=== PATIENT | male | born 1980 | race Caucasian/White ===

== ENCOUNTER 2020-03-20 10:06 | Emergency (ER) | payer OTHER ==
[~2020-03-20] VITALS: Ht 180.3 cm; Wt 100.0 kg
[2020-03-20 10:18] VITALS: BP 138/96; TEMP 98.5
[2020-03-20] MEDS ORDERED: PRILOSEC 20MG20 MG PO (10:18)
[2020-03-20 11:49] VITALS: PULSE 64
== END 2020-03-20 11:44 | disposition home or self-care (01) ==
LOC: COL.ER 10:06
DX: S93.401A Sprain of unspecified ligament of right ankle, initial encounter (principal); X50.1XXA Overexertion from prolonged static or awkward postures, initial encounter

== ENCOUNTER 2020-03-22 21:14 | Emergency (ER) | payer OTHER ==
[~2020-03-22] VITALS: Ht 180.3 cm; Wt 100.9 kg
[~2020-03-22 21:14] MED LIST: PRILOSEC 20MG20 MG PO
[2020-03-22 21:18] VITALS: TEMP 98
[2020-03-22 22:05] VITALS: BP 128/70; PULSE 80
== END 2020-03-22 22:05 | disposition home or self-care (01) ==
LOC: COL.ER 21:14
DX: S93.401A Sprain of unspecified ligament of right ankle, initial encounter (principal); I10 Essential (primary) hypertension; F17.210 Nicotine dependence, cigarettes, uncomplicated; X50.1XXA Overexertion from prolonged static or awkward postures, initial encounter; Y92.009 Unspecified place in unspecified non-institutional (private) residence as the place of occurrence of the external cause

== ENCOUNTER 2021-01-14 16:00 | Emergency (ER) | payer OTHER ==
[~2021-01-14] VITALS: Ht 180.3 cm; Wt 109.1 kg
[2021-01-14] MEDS ORDERED: CEPHALEXIN500 M1 PO (16:27)
[2021-01-14 16:54] VITALS: BP 141/75; PULSE 91; TEMP 97.9
== END 2021-01-14 16:55 | disposition home or self-care (01) ==
LOC: COL.ER 16:00
DX: S61.216A Laceration without foreign body of right little finger without damage to nail, initial encounter (principal); F17.210 Nicotine dependence, cigarettes, uncomplicated; W26.0XXA Contact with knife, initial encounter; Y92.810 Car as the place of occurrence of the external cause
CPT/HCPCS: J1885

== ENCOUNTER 2021-07-05 18:20 | Emergency (ER) | payer OTHER ==
[~2021-07-05 18:20] MED LIST changes: +CEPHALEXIN500 M1 PO
== END 2021-07-05 19:15 | disposition left against medical advice (07) ==
LOC: COL.ER 18:20
DX: R52 Pain, unspecified (principal)

== ENCOUNTER 2021-07-13 16:40 | Emergency (ER) | payer OTHER ==
[~2021-07-13] VITALS: Ht 180.3 cm; Wt 109.1 kg
[2021-07-13 17:24] VITALS: BP 167/90; PULSE 92; TEMP 98
[2021-07-13] MEDS ORDERED: ULTRAM 50MG TAB50 MG PO (19:33)
== END 2021-07-13 19:42 | disposition home or self-care (01) ==
LOC: COL.ER 16:40
DX: S46.912A Strain of unspecified muscle, fascia and tendon at shoulder and upper arm level, left arm, initial encounter (principal); V58.9XXA Unspecified occupant of pick-up truck or van injured in noncollision transport accident in traffic accident, initial encounter; Y99.0 Civilian activity done for income or pay

== ENCOUNTER 2021-10-01 14:12 | Emergency (ER) | payer OTHER ==
[~2021-10-01] VITALS: Ht 180.3 cm; Wt 113.6 kg
[~2021-10-01 14:12] MED LIST changes: +ULTRAM 50MG TAB50 MG PO
[2021-10-01 15:13] VITALS: BP 140/80; PULSE 98; TEMP 98.5
== END 2021-10-01 16:53 | disposition left against medical advice (07) ==
LOC: COL.ER 14:12
DX: M25.512 Pain in left shoulder (principal); Z98.890 Other specified postprocedural states
CPT/HCPCS: J1170

== ENCOUNTER 2021-11-26 19:34 | Emergency (ER) | payer OTHER ==
[~2021-11-26] VITALS: Ht 177.8 cm; Wt 109.1 kg
[2021-11-26 19:55] VITALS: TEMP 98.2
[2021-11-26 20:38] VITALS: PULSE 99
[2021-11-26] MEDS ORDERED: LIPITOR 40MG TA40 MG PO (20:41)
[2021-11-26] MEDS ORDERED: PRINIVIL40 MG PO (20:41)
[2021-11-26] MEDS ORDERED: NORCO 325 MG-51 TAB PO (20:57)
[2021-11-26 21:10] VITALS: BP 161/90
== END 2021-11-26 21:10 | disposition home or self-care (01) ==
LOC: COL.ER 19:34
DX: M25.512 Pain in left shoulder (principal); Z98.890 Other specified postprocedural states; Z87.891 Personal history of nicotine dependence; X50.0XXA Overexertion from strenuous movement or load, initial encounter; Y93.F2 Activity, caregiving, lifting

== ENCOUNTER 2021-12-26 20:13 | Emergency (ER) | payer OTHER ==
[~2021-12-26] VITALS: Ht 180.3 cm; Wt 109.1 kg
[~2021-12-26 20:13] MED LIST changes: +LIPITOR 40MG TA40 MG PO; +NORCO 325 MG-51 TAB PO; +PRINIVIL40 MG PO
[2021-12-26 20:36] VITALS: TEMP 98.5
[2021-12-26] MEDS ORDERED: PERCOCET 325 MG1 TA2 PO (22:08)
[2021-12-26 22:11] VITALS: BP 122/68; PULSE 87
== END 2021-12-26 22:25 | disposition home or self-care (01) ==
LOC: COL.ER 20:13
DX: S43.102A Unspecified dislocation of left acromioclavicular joint, initial encounter (principal); Z87.891 Personal history of nicotine dependence; V86.59XA Driver of other special all-terrain or other off-road motor vehicle injured in nontraffic accident, initial encounter

== ENCOUNTER 2022-01-10 20:01 | Emergency (ER) | payer OTHER ==
[~2022-01-10] VITALS: Ht 180.3 cm; Wt 104.5 kg
[~2022-01-10 20:01] MED LIST changes: +PERCOCET 325 MG1 TA2 PO
[2022-01-10 20:05] VITALS: TEMP 97.5
[2022-01-10 20:52] VITALS: BP 139/82; PULSE 96
== END 2022-01-10 20:52 | disposition home or self-care (01) ==
LOC: COL.ER 20:01
DX: S46.212A Strain of muscle, fascia and tendon of other parts of biceps, left arm, initial encounter (principal); Z98.890 Other specified postprocedural states; X50.0XXA Overexertion from strenuous movement or load, initial encounter; Y92.009 Unspecified place in unspecified non-institutional (private) residence as the place of occurrence of the external cause

== ENCOUNTER 2022-01-30 22:28 | Emergency (ER) | payer OTHER ==
[~2022-01-30] VITALS: Ht 180.3 cm; Wt 113.6 kg
[2022-01-31] MEDS ORDERED: NORCO 325 MG-51 TAB PO (00:04)
[2022-01-31] MEDS ORDERED: ROBAXIN 75750 MG/TAB PO (00:04)
[2022-01-31 00:23] VITALS: BP 133/78; PULSE 85; TEMP 97.7
== END 2022-01-31 00:23 | disposition home or self-care (01) ==
LOC: COL.ER 22:28
DX: M25.552 Pain in left hip (principal); Z98.890 Other specified postprocedural states; Z96.89 Presence of other specified functional implants; X50.1XXA Overexertion from prolonged static or awkward postures, initial encounter; Y93.53 Activity, golf

== ENCOUNTER 2022-02-23 21:27 | Emergency (ER) | payer OTHER ==
[~2022-02-23] VITALS: Ht 180.3 cm; Wt 115.9 kg
[~2022-02-23 21:27] MED LIST changes: +ROBAXIN 75750 MG/TAB PO
[2022-02-23 21:33] VITALS: TEMP 98.2
[2022-02-23] MEDS ORDERED: CRUTCHES MC (22:25)
[2022-02-23 23:00] VITALS: BP 114/78; PULSE 76
== END 2022-02-23 23:00 | disposition home or self-care (01) ==
LOC: COL.ER 21:27
DX: S90.32XA Contusion of left foot, initial encounter (principal); Z28.310 Unvaccinated for COVID-19; W20.8XXA Other cause of strike by thrown, projected or falling object, initial encounter

== ENCOUNTER 2022-10-01 21:18 | Emergency (ER) | payer OTHER ==
[~2022-10-01] VITALS: Ht 180.3 cm; Wt 109.1 kg
[~2022-10-01 21:18] MED LIST changes: +CRUTCHES MC
[2022-10-01 21:20] VITALS: BP 126/75; TEMP 98.4
[2022-10-01 22:52] VITALS: PULSE 89
[2022-11-04] MEDS ORDERED: ULTRAM 50MG TAB50 MG PO (15:21)
[2022-12-04] MEDS ORDERED: ULTRAM 50MG TAB50 MG PO (20:49)
[2023-01-20] MEDS ORDERED: PREDNISONE50 MG PO (22:06)
[2023-01-20] MEDS ORDERED: ULTRAM 50MG TAB50 MG PO (22:06)
[2023-06-30] MEDS ORDERED: TAMIFLU 75MG75 MG PO (12:19)
[2023-06-30] MEDS ORDERED: OXAYDO5 MG PO (12:20)
[2023-06-30] MEDS ORDERED: ZITHROMAX500 M2 PO (12:22)
== END 2022-10-01 22:52 | disposition home or self-care (01) ==
LOC: COL.ER 21:18
DX: M25.552 Pain in left hip (principal)
CPT/HCPCS: J1170

== ENCOUNTER 2023-01-25 21:05 | Emergency (ER) | payer OTHER ==
[~2023-01-25] VITALS: Ht 180.3 cm; Wt 109.1 kg
[~2023-01-25 21:05] MED LIST changes: +PREDNISONE50 MG PO
[2023-01-25 21:08] VITALS: TEMP 98.1
[2023-01-25] MEDS ORDERED: NORCO 325 MG-51 TAB PO (22:10)
[2023-01-25] MEDS ORDERED: MEDROL 4MG DOSPA4 MG PO (22:10)
[2023-01-25 22:35] VITALS: BP 153/101; PULSE 86
== END 2023-01-25 22:49 | disposition home or self-care (01) ==
LOC: COL.ER 21:05
DX: M54.16 Radiculopathy, lumbar region (principal); G89.29 Other chronic pain
CPT/HCPCS: J1885

== ENCOUNTER 2023-07-09 18:29 | Emergency (ER) | payer OTHER ==
[~2023-07-09] VITALS: Ht 177.8 cm; Wt 109.1 kg
[~2023-07-09 18:29] MED LIST changes: +MEDROL 4MG DOSPA4 MG PO; +OXAYDO5 MG PO; +TAMIFLU 75MG75 MG PO; +ZITHROMAX500 M2 PO
[2023-07-09 18:36] VITALS: TEMP 98.1
[2023-07-09 19:12] LABS: COLLECTION METHOD CLEAN CATCH
[2023-07-09 19:15] LABS: BASO % 0.1 % (0.0-2.0); EOS % 0.4 % (0.0-4.0); GRAN # 6.4 K/mm3 (1.4-6.5); HEMATOCRIT 43.9 % (42.0-52.0); HEMOGLOBIN 14.7 g/dl (13.5-18.0); LYMPH # 3.2 K/mm3 (1.2-3.4); LYMPH % 30.5 % (20.0-51.0); MEAN CELL VOLUME 92 fl (80.0-100.0); MEAN CORPUSCULAR HEMOGLOBIN 31 pg (27-31); MEAN CORPUSCULAR HGB CONC 34 g/dl (33.0-37.0); MEAN PLATELET VOLUME 8.6 fl (7.4-10.4); MONO # 0.9 K/mm3 (0.1-0.6); MONO % 8.6 % (1.7-9.3); PLATELET COUNT 519 K/mm3 (130-400); RED BLOOD COUNT 4.77 M/mm3 (4.20-5.60); REDCELL DISTRIBUTION WIDTH-CV 13.1 % (11.5-14.5)
[2023-07-09 19:19] LABS: URINE APPEARANCE Clear (CLEAR/HAZY); URINE COLOR Yellow (YELLOW)
[2023-07-09 19:20] LABS: URINE BLOOD Negative (NEGATIVE); URINE GLUCOSE Negative (NEGATIVE); URINE KETONE 1+ (NEGATIVE); URINE NITRATE Negative (NEGATIVE); URINE PROTEIN(semi-quant) 1+ (NEGATIVE); URINE UROBILINOGEN 0.2 E.U/dL (0.2-1.0)
[2023-07-09 19:27] LABS: MUCOUS Present (NOT PRESENT); SQUAMOUS EPITHELIAL 0-2 /hpf (0-10); URINE BACTERIA Occasional /hpf (NONE SEEN)
[2023-07-09 19:46] LABS: ALBUMIN 4.1 gm/dL (3.5-5.0); BILIRUBIN,TOTAL 0.3 mg/dL (0.2-1.2); C-REACTIVE PROTEIN 0.51 mg/dL (0.00-0.50); CALCIUM 9.8 mg/dL (8.4-10.2); CREATININE, serum 1.27 mg/dL (0.72-1.25); POTASSIUM 3.7 mmol/L (3.5-4.5); TOTAL PROTEIN 7.7 gm/dL (6.2-8.1)
[2023-07-09] MEDS ORDERED: ZOFRAN ODT4 MG PO (22:41)
[2023-07-09] MEDS ORDERED: BENTYL 20MG20 MG/TAB PO (22:42)
[2023-07-09 23:00] VITALS: BP 165/88; PULSE 106
== END 2023-07-09 23:00 | disposition home or self-care (01) ==
LOC: COL.ER 18:29
PROVIDERS: Nurse Practitioner
DX: R10.12 Left upper quadrant pain (principal); R10.32 Left lower quadrant pain; R11.0 Nausea
CPT/HCPCS: J1885; J2270; J2405; J7030

== ENCOUNTER 2023-12-14 19:51 | Emergency (ER) | payer OTHER ==
[~2023-12-14] VITALS: Ht 180.3 cm; Wt 113.6 kg
[~2023-12-14 19:51] MED LIST changes: +BENTYL 20MG20 MG/TAB PO; +ZOFRAN ODT4 MG PO
[2023-12-14 20:16] VITALS: BP 139/74; PULSE 93; TEMP 98
[2023-12-14] MEDS ORDERED: Ibuprofen 400 MG TAB PO ONE (21:45)
== END 2023-12-14 22:26 | disposition left against medical advice (07) ==
LOC: COL.ER 19:51
DX: M25.551 Pain in right hip (principal)

== ENCOUNTER 2024-04-07 16:24 | Emergency (ER) | payer OTHER ==
[~2024-04-07] VITALS: Ht 180.3 cm; Wt 109.1 kg
[2024-04-07 16:49] VITALS: BP 157/91; PULSE 78; TEMP 98.3
== END 2024-04-07 18:20 | disposition left against medical advice (07) ==
LOC: COL.ER 16:24
DX: K08.89 Other specified disorders of teeth and supporting structures (principal)